=== PATIENT | female | born 1980 | race Caucasian/White ===

== ENCOUNTER 2022-05-13 10:27 | Emergency (ER) | payer SELFPAY ==
[2022-05-13 10:44] VITALS: BP 130/60; PULSE 122; RESP 18; TEMP 36.9; O2SAT 100; BMI 24.7
--- NOTE | 2022-05-13 11:26 | ED.GENADULT ---
HPI - General Adult General Chief complaint: Dental/Oral Stated complaint: Absess mouth right side Time Seen by Provider: 05/13/22 11:14 Source: patient Mode of arrival: Ambulatory History of Present Illness HPI narrative: 42-year-old female who has known poor dentition who is here for evaluation of an abscess to the right side of her mouth. She states that this started over the past 24 hours. She does not have a dentist but states she can follow-up with [facility] however she noticed a swelling an abscess to the roof of her mouth. No problems breathing. No problems swallowing. No fevers. Does have some swelling to the right side of her face. Related Data Previous Rx's Medication Instructions Recorded penicillin V potassium 500 mg 500 mg PO Q6H 7 days #28 tabs 05/13/22 tablet Allergies Allergy/AdvReac Type Severity Reaction Status Date / Time No Known Drug Allergies Allergy Verified 05/13/22 11:29 Review of Systems Constitutional Constitutional: Reports system reviewed and no additional complaints, except as documented ENT Ears, Nose, Mouth, and Throat: Reports system reviewed and no additional complaints, except as documented Cardiovascular Cardiovascular: Reports system reviewed and no additional complaints, except as documented Respiratory Respiratory: Reports system reviewed and no additional complaints, except as documented Hematologic/Lymphatic On Anticoagulants: No Patient History Medical History Poor dentition Social History Smoking Status: Current every day smoker Smoking Status: Current every day smoker Substance Use Type: does not use Exam Initial Vital Signs Initial Vital Signs: Vital Signs Temperature 98.5 F 05/13/22 10:44 Pulse Rate 122 H 05/13/22 10:44 Respiratory Rate 18 05/13/22 10:44 Blood Pressure 130/60 05/13/22 10:44 Pulse Oximetry 100 05/13/22 10:44 Oxygen Delivery Method 05/13/22 10:44 Const General: cooperative HENMT Head: normal to inspection and normocephalic Face and sinus: no ecchymosis and no erythema Mouth: lip normal and other (1 cm x 1 cm swelling to the hard palate right side) Teeth and gingiva: poor dentition Throat: posterior oropharynx normal Resp Effort & Inspection: normal respiratory effort Auscultation: clear to auscultation bilaterally Cardio Rate: regular rate Rhythm: regular rhythm Skin General: no rashes or lesions noted Neuro General: patient alert, patient awake, patient oriented x3 and moves all extremities Extrem General: normal to inspection and capillary refill normal Psych Appearance: grossly normal Procedures Abscess I/D I&D #1: Site: oral Side (if applicable): right Technique: incised with #11 blade Course Vital Signs Vital signs: Vital Signs - 8 hr 05/13/22 10:44 05/13/22 11:33 Temperature 98.5 F Pulse Rate 122 H 107 H Respiratory Rate 18 22 Blood Pressure 130/60 126/61 Pulse Oximetry 100 99 Oxygen Delivery Method Room Air Room Air Medical Decision Making MDM Narrative Medical decision making narrative: No fevers. Tolerating oral intake. No purulent material was expressed from the abscess on the roof of her mouth. She stated that this only appear to the past 24 hours however I told her that if things do not improve she absolutely needs to have this evaluated because oral cancers can present like this as well but just not as quick. She has very poor dentition and told her that she does need to follow up with the dentist. Was sent home with antibiotics. She is given return precautions. She expressed understanding and agreement. Discharge Plan Departure Patient Disposition: Home Clinical Impression: Dental abscess Instructions: DI for Tooth Abscess Activity Restrictions/Additional Instructions: A prescription for antibiotics was sent to [facility] per your request. Please take it as directed. It is important that you follow-up with a dentist like we discussed. Return to the emergency department for any new or worsening symptoms. Prescriptions: New penicillin V potassium 500 mg tablet 500 mg PO Q6H 7 Days Qty: 28 0RF Visit Report Forms: Patient Portal/API
[2022-05-13 11:33] VITALS: BP 126/61; PULSE 107; RESP 22; O2SAT 99
--- NOTE | 2022-05-13 11:34 | PC.NURSE ---
Small swollen area on roof of mouth, front right side. Pt reports this area just swelled up big again. notified
== END 2022-05-13 11:47 | disposition home or self-care (01) ==
PROVIDERS: Emergency Provider Emergency Medicine
DX: K04.7 Periapical abscess without sinus (principal)
CPT/HCPCS: 10060; 99281; 99283